=== PATIENT | female | born 1975 | race Hispanic/Latino ===

== ENCOUNTER 2024-08-14 01:03 | Emergency (ER) | payer SELFPAY ==
[2024-08-14] MEDS ORDERED: Ondansetron PF 4 MG/2 ML Vial ONE (01:57)
[2024-08-14] MEDS ORDERED: Ketorolac Tromethamine 30 MG (1 mL) VIAL ONE (02:01)
[2024-08-14 02:07] LABS: #Basophils 0.04 10x3/uL (0.0-0.2); %Basophils 0.8 % (0.0-1.0); %Eosinophils 1.7 % (0.0-10.0); %Lymphocytes 40.6 % (21.0-51.0); %Monocytes 9.1 % (0.0-10.0); %Neutrophils 47.6 % (42.0-75.0); Hematocrit 39.1 % (36.0-47.0); Hemoglobin 13.4 g/dL (12.0-16.0); Mean Corpuscular HGB CONC 34.3 g/dL (32.0-36.0); Mean Corpuscular Hemoglobin 33.3 pg (27.0-31.0); Mean Corpuscular Volume 97.3 fL (78.0-98.0); Mean Platelet Volume 9.4 fL (7.4-10.4); Platelet Count 244 10x3/uL (130-400); RBC Distribution Width 11.8 % (11.5-14.5); Red Blood Cell (RBC) Count 4.02 mill/uL (4.20-5.40)
[2024-08-14 02:44] LABS: Troponin I 0.015 ng/mL (< 0.028)
[2024-08-14 02:46] LABS: ALT (SGPT) 19 U/L (Less than 34); AST (SGOT) 26 U/L (11-34); Albumin 4.1 g/dL (3.1-4.5); BUN (Urea Nitrogen) 14 mg/dL (7.0-18.7); Bilirubin, Total 0.4 mg/dL (0.3-1.2); Calc. Creatinine Clearance 0 mL/min (70-130); Calcium 9.7 mg/dL (7.8-10.44); Carbon Dioxide 26 mmol/L (22-29); Estimated GFR 109; Globulin 3.1 g/dL (2.4-3.5); Glucose 129 mg/dL (70-105); Protein, Total 7.2 g/dL (6.0-8.3)
[2024-08-14 03:45] LABS: Alkaline Phosphatase 92 U/L (40-110); Anion Gap 11 mmol/L (10-20); Chloride 107 mmol/L (98-107); Potassium 3.5 mmol/L (3.5-5.1); Sodium 140 mmol/L (136-145)
== END 2024-08-14 03:41 | disposition home or self-care (01) ==
LOC: ERS 01:03
DX: G44.209 Tension-type headache, unspecified, not intractable (principal); F43.9 Reaction to severe stress, unspecified; R07.2 Precordial pain; I10 Essential (primary) hypertension
CPT/HCPCS: 71045; 80053; 84484; 85025; 93005; 96374; 96375; J1885; J2405